=== PATIENT | female | born 1995 | race Caucasian/White ===

== ENCOUNTER → 2018-12-21 | Outpatient (CLI) | payer BC, OTHER ==
[2018-12-21 08:23] LABS: Basophils % (A) 1 %; Eosinophils # (A) 0.1 k/uL (0-0.7); Eosinophils % (A) 3 %; HCT 38.3 % (34.0-46.0); HGB 12.3 gm/dL (11.4-16.0); Lymphocytes # (A) 1.8 k/uL (1.0-4.8); Lymphocytes % (A) 39 %; MCH 29.2 pg (25.0-35.0); MCHC 32.2 g/dL (31.0-37.0); MCV 90.6 fL (80.0-100.0); Mean Platelet Volume 7.1; Monocytes # (A) 0.2 k/uL (0-1.0); Monocytes % (A) 5 %; Neutrophils # (A) 2.4 k/uL (1.3-7.7); Neutrophils % (A) 51 %; Platelet Count 207 k/uL (150-450); RBC 4.22 m/uL (3.80-5.40); RDW 13.6 % (11.5-15.5); WBC 4.7 k/uL (3.8-10.6)
== END | disposition home or self-care (01) ==
LOC: LABPAT 07:41
PROVIDERS: ATTEND Obstetrics & Gynecology
DX: Z01.812 Encounter for preprocedural laboratory examination (principal); Z64.0 Problems related to unwanted pregnancy
CPT/HCPCS: 85025

== ENCOUNTER 2018-12-26 09:59 | Day surgery (SDC) | payer BC, OTHER ==
[2018-12-22 13:11] VITALS: BMI 29.8
[~2018-12-26 09:59] MED LIST: DEXAMETHASONE SOD PHOSPHATE 10 MG/ML 1 ML VIAL IV ONE; KETOROLAC 30 MG/ML 1 ML VIAL IVP SCH; LIDOCAINE 1% 20 ML VIAL (10MG/ML) FOR IV START INTRADERMA PRN; ONDANSETRON 4 MG/2 ML VIAL IVP ONE; ONDANSETRON 4 MG/2 ML VIAL IVP PRN; Pre Op ABX Message 1 EACH MISC MISCELLANE ONE; SCOPOLAMINE 1.5MG/72HR PATCH TRANSDERM ONE
[2018-12-26] MEDS: LACTATED RINGERS 1,000 ML IV SCH ×3 (10:34→16:25)
[2018-12-26] MEDS ORDERED: BUPIVACAINE (PF) 0.5% 30 ML VIAL SQ ONE ×3 (12:12→12:49)
[2018-12-26] MEDS ORDERED: SUCCINYLCHOLINE CHLORIDE 100 MG/5 ML SYR IV ONE (12:15)
[2018-12-26] MEDS ORDERED: fentaNYL (PF) 50 MCG/ML 2 ML AMP ONE (12:15)
[2018-12-26] MEDS ORDERED: PROPOFOL 10 MG/ML 20 ML VIAL IV ONE (12:15)
[2018-12-26] MEDS ORDERED: ROCURONIUM BROMIDE 10 MG/ML 10 ML VIAL IV ONE (12:15)
[2018-12-26] MEDS ORDERED: LIDOCAINE 1% INJ 10MG/ML (20 ML MDV) ONE (12:15)
[2018-12-26] MEDS ORDERED: NEOSTIGMINE 1 MG/ML 10 ML VIAL ONE (12:15)
[2018-12-26] MEDS ORDERED: GLYCOPYRROLATE 0.2 MG/ML 2 ML VIAL ONE (12:15)
[2018-12-26] MEDS ORDERED: KETOROLAC 30 MG/ML 1 ML VIAL ONE (12:15)
[2018-12-26] MEDS ORDERED: HYDROmorphone (PF) 1 MG/ML ONE (12:15)
[2018-12-26] MEDS ORDERED: MIDAZOLAM 2 MG/2 ML VIAL ONE (12:15)
[2018-12-26] MEDS ORDERED: LACTATED RINGERS 1,000 ML IV ONE (12:20)
[2018-12-26] MEDS: HYDROmorphone 0.5 MG/0.5 ML SYRINGE IVP PRN ×2 (13:11→13:16)
--- NOTE | 2018-12-26 13:13 | P.OP ---
Date of Procedure: 12/26/18 Preoperative Diagnosis: Undesired fertility, ParaGard IUD in place Postoperative Diagnosis: Undesired fertility, ParaGard IUD removed 3 cm simple right ovarian cyst Procedure(s) Performed: ParaGard IUD removal, laparoscopic bilateral tubal occlusion with Filshie clips. Anesthesia: GETA Surgeon: Sridevi Wadsworth Estimated Blood Loss (ml): 10 IV fluids (ml): 400 Pathology: none sent Condition: stable Disposition: PACU Operative Findings: Normal-appearing bilateral fallopian tubes and uterus. 3 cm simple right ovarian cyst. Normal-appearing left ovary. Description of Procedure: After the patient and her were met in the preoperative holding area and all questions were answered, she is taken to the operating room where anesthetic was administered without incident. She was positioned, prepped and draped in the dorsal lithotomy position. Bladder was drained for 150 mL of clear urine. Speculum was placed in the vagina and the IUD strings were easily visualized. These were grasped with a ring forcep and the IUD was removed intact without difficulty. The acorn uterine manipulator was then placed. Attention was then turned to the abdomen. A 5 mm infraumbilical skin incision was made. The anterior abdominal wall was elevated and the varies needle was inserted. Although saline drop test indicated intraperitoneal placement the initial filling pressure was 10 mm and increased to 14. The varies needle was then removed. The 5 blade less optical trocar was then utilized to introduce the camera under direct visualization and intraperitoneal placement was noted. There was some of the anterior abdominal wall noted consistent with the varies needle insufflation. The uterus was elevated out of the pelvis after the patient was placed in Trendelenburg. A simple right approximate 3 cm ovarian cyst was appreciated. The courses both right and left fallopian tubes were positively identified. Under direct visualization a 8 mm suprapubic port was placed. The Filshie clip woods overseer and Filshie clip's were introduced. The right fallopian tube was positively identified and carried out visually to its fimbriated end. Filshie clip was applied completely transecting the tube in the mid ampullary portion. Similarly the left fallopian tube was positively identified and visually carried out to the left fimbriated end. Filshie clip was then placed completely transecting the tube in the mid ampullary region. Complete transection of each tube was confirmed. The suprapubic port was removed and the abdomen was desufflated of CO2 gas. The umbilical port was removed. The skin was closed using 4-0 Vicryl suture and was infused with oral percent Marcaine. Instruments removed from the vagina and there was some bleeding noted at the tenaculum site. Firm pressure was held with a sponge stick and hemostasis was noted. The procedure was then terminated. All counts reported to me as correct by the operating room staff and the patient was transported recovery area in stable condition.
[2018-12-26 13:14] VITALS: TEMP 97.9
[2018-12-26] MEDS: fentaNYL (PF) 50 MCG/ML 2 ML AMP IVP ONE ×2 (13:39→13:49)
[2018-12-26] MEDS ORDERED: ONDANSETRON 4 MG/2 ML VIAL IVP ONE (14:29)
[2018-12-26] MEDS ORDERED: PROMETHAZINE INJ 25 MG/ML 1 ML VIAL IVPB ONE (15:43)
[2018-12-26 16:42] VITALS: BP 122/75; PULSE 57; RESP 16
== END 2018-12-26 16:43 | disposition home or self-care (01) ==
LOC: OR 09:59
PROVIDERS: ATTEND Obstetrics & Gynecology
DX: Z30.2 Encounter for sterilization (principal); Z30.432 Encounter for removal of intrauterine contraceptive device; N83.291 Other ovarian cyst, right side; N94.6 Dysmenorrhea, unspecified; Z83.3 Family history of diabetes mellitus; Z80.42 Family history of malignant neoplasm of prostate; Z80.3 Family history of malignant neoplasm of breast; Z80.8 Family history of malignant neoplasm of other organs or systems
CPT/HCPCS: 81025; 58671; 58301; J2250; J1100; J2550; J2710; J2405; J2001; J3010; J1885; J1170 ×2; J0330; J2704

== ENCOUNTER → 2020-02-29 | Outpatient (CLI) | payer OTHER ==
--- NOTE | 2020-02-29 12:49 | US ---
EXAMINATION TYPE: US groin LT DATE OF EXAM: 02/29/2020 COMPARISON: NONE CLINICAL HISTORY: R01.2 inguinal pain. Lt groin pain. No abnormalities seen. IMPRESSION: 1. Normal left groin ultrasound.
== END | disposition home or self-care (01) ==
LOC: RADUSWWP 06:54
PROVIDERS: ATTEND Family Medicine
DX: R10.2 Pelvic and perineal pain (principal)

== ENCOUNTER → 2023-03-24 | Outpatient (CLI) | payer OTHER ==
--- NOTE | 2023-03-24 18:43 | CA ---
Transthoracic Echo Report Name: Meera Cook Age: 27 Gender: F : 1995 Exam Date: 03/24/2023 15:25 Exam Location: [facility] Ht (in): 66 Wt (lb): 235 Ordering Physician: Damon Carrillo MD Attending/Referring Phys: Gerardo BRADLEY [employer] Margie Gamez [facility] Procedure CPT: Indications: R07.89 other chest pain Cardiac Hx: Technical Quality: Fair Contrast 1: Total Dose (mL): Contrast 2: Total Dose (mL): MEASUREMENTS (Male / Female) Normal Values 2D ECHO LV Diastolic Diameter PLAX 4.3 cm 4.2 - 5.9 / 3.9 - 5.3 cm LV Systolic Diameter PLAX 2.6 cm IVS Diastolic Thickness 0.7 cm 0.6 - 1.0 / 0.6 - 0.9 cm LVPW Diastolic Thickness 0.7 cm 0.6 - 1.0 / 0.6 - 0.9 cm LV Relative Wall Thickness 0.3 Ascending Aorta Diameter 2.4 cm M-MODE Aortic Root Diameter MM 2.3 cm LA Systolic Diameter MM 3.2 cm LA Ao Ratio MM 1.4 AV Cusp Separation MM 1.9 cm DOPPLER AV Peak Velocity 140.0 cm/s AV Peak Gradient 7.8 mmHg AV Mean Velocity 104.1 cm/s AV Mean Gradient 4.7 mmHg AV Velocity Time Integral 30.7 cm LVOT Peak Velocity 128.8 cm/s LVOT Peak Gradient 6.6 mmHg LVOT Velocity Time Integral 28.6 cm Mitral E Point Velocity 98.7 cm/s Mitral A Point Velocity 50.5 cm/s Mitral E to A Ratio 2.0 MV Deceleration Time 121.6 ms LV E' Lateral Velocity 22.8 cm/s Mitral E to LV E' Lateral Ratio 4.3 LV E' Septal Velocity 14.0 cm/s Mitral E to LV E' Septal Ratio 7.0 TR Peak Velocity 204.6 cm/s TR Peak Gradient 16.7 mmHg Right Atrial Pressure 3.0 mmHg Pulmonary Artery Systolic Pressu 19.7 mmHg Right Ventricular Systolic Press 19.7 mmHg FINDINGS Left Ventricle Left ventricular wall thickness normal. Left ventricular cavity size normal. Normal left ventricular systolic function with no obvious regional wall motion abnormalities. Left ventricular ejection fraction is estimated at 55-60%. Right Ventricle Right ventricle at upper limits of normal. Right Atrium Upper normal right atrial size. Left Atrium Normal left atrial size. Mitral Valve Structurally normal mitral valve. Trace to Mild mitral regurgitation. Aortic Valve Trileaflet aortic valve. No aortic valve stenosis or regurgitation. Tricuspid Valve Structurally normal tricuspid valve. Trace to Mild tricuspid regurgitation. Pulmonic Valve Pulmonic valve not well visualized. Pericardium Minimal pericardial effusion (normal variant). Aorta Normal size aortic root and proximal ascending aorta. CONCLUSIONS 1. Normal left ventricle size and systolic function 2. Trace to mild mitral and tricuspid regurgitation Previewed by: Dr. Jeff Villavicencio MD (Electronically Signed) Final Date: 24 March 2023 18:42
== END | disposition home or self-care (01) ==
LOC: RADECHMAIN 15:18
PROVIDERS: ATTEND Family Medicine
DX: I08.1 Rheumatic disorders of both mitral and tricuspid valves (principal); R07.89 Other chest pain
CPT/HCPCS: 93306